=== PATIENT | male | born 1965 | race Caucasian/White ===

== ENCOUNTER 2020-02-13 08:41 | Inpatient (IN) | payer MEDICAID, OTHER ==
[~2020-02-13] VITALS: Ht 190.5 cm; Wt 97.5 kg
[2020-02-13] MEDS ORDERED: SODIUM CHLORIDE 0.9% 1,000 ML IV ONE (09:08)
[2020-02-13] MEDS ORDERED: cefTRIAXone 1GM/50ML D5W 50 ML IV ONE (09:15)
[2020-02-13 10:26] LABS: Basophils # (auto) 0.1 10 ^3/uL (0-0.2); Basophils % (auto) 0.8 % (0.0-2.0); Eosinophils # (auto) 0.1 10 ^3/uL (0-0.8); Hematocrit 47.1 % (41.0-53.0); Hemoglobin 16.6 g/dL (13.5-17.5); Lymphocytes # (auto) 2.4 10 ^3/uL (0.4-5.4); Lymphocytes % (auto) 21.1 % (10.0-50.0); Mean Corpuscular Hemoglobin 33.4 pg (28.0-32.0); Mean Corpuscular Hgb Conc. 35.3 g/dL (32.0-36.0); Mean Corpuscular Volume 94.6 fL (80.0-100.0); Monocytes # (auto) 0.8 10 ^3/uL (0-1.3); Monocytes % (auto) 7.3 % (0.0-12.0); Neutrophils % (auto) 69.8 % (37.0-80.0); Nucleated Red Blood Cells % 0.1 %; Platelet Count (auto) 192 10^3/uL (140-450); Red Blood Cells 4.98 10^6/uL (4.5-5.90); White Blood Cell 11.4 10^3/uL (4.4-10.8)
[2020-02-13 10:47] LABS: Alanine Aminotransferase 52 U/L (16-61); Albumin 3.7 g/dL (3.4-5.0); Anion Gap 9 (5-15); Blood Urea Nitrogen 12 mg/dL (7-18); Calcium 8.8 mg/dL (8.5-10.1); Carbon Dioxide 24 mmol/L (21-32); Chloride 108 mmol/L (98-107); Glucose 145 mg/dL (74-106); Magnesium 2.2 mg/dL (1.6-2.6); Potassium 3.7 mmol/L (3.5-5.1); Sodium 141 mmol/L (136-145)
[2020-02-13 10:52] LABS: Alkaline Phosphatase 120 U/L (45-117); Aspartate Aminotransferase 27 U/L (15-37); BUN/Creatinine Ratio 11.7; Bilirubin, Total 1.8 mg/dL (0.2-1.0); GFR African American 97 mL/min; GFR Non-African American 80 mL/min; Total Protein 7.8 g/dL (6.4-8.2)
[2020-02-13 11:48] LABS: Urine Bacteria NONE SEEN /hpf (None Seen); Urine Blood 1+ /uL (Negative); Urine Specific Gravity 1.017 (1.001-1.035); Urine Sperm PRESENT /hpf (None Seen); Urine WBC 1 /hpf (0 - 3)
[2020-02-13 12:08] LABS: Alcohol, Urine < 3.0 mg/dL (0-5); Amphetamine Screen, Urine POSITIVE (NEGATIVE); Barbiturate Scree,Urine NEGATIVE (NEGATIVE); Benzodiazephine Screen, Urine NEGATIVE (NEGATIVE); Cannabinoid Screen, Urine NEGATIVE (NEGATIVE); Cocaine Screen, Urine NEGATIVE (NEGATIVE); Opiate Scree,Urine NEGATIVE (NEGATIVE); Phencyclidine Screen, Urine NEGATIVE (NEGATIVE)
[2020-02-13] MEDS ORDERED: hydrALAZINE HCL 10 MG TAB PO ONE (16:45)
[2020-02-13] MEDS ORDERED: NITROGLYCERIN 0.4 MG SL TAB SL PRN (18:15)
[2020-02-13] MEDS ORDERED: DEXTROSE (50%) 50ML SYRG IV PRN (18:15)
[2020-02-13] MEDS ORDERED: traMADol HCL 50 MG TAB PO PRN (18:15)
[2020-02-13] MEDS ORDERED: LACTULOSE 20Gm/30ML SOLN PO PRN (18:15)
[2020-02-13] MEDS ORDERED: PROMETHAZINE HCL 25 MG/ML 1ML IV PRN (18:15)
[2020-02-13] MEDS ORDERED: SODIUM CHLORIDE 0.9% 1,000 ML IV SCH (18:15)
[2020-02-13] MEDS ORDERED: ACETAMINOPHEN 500 MG TAB PO PRN (18:15)
[2020-02-13] MEDS ORDERED: MORPHINE SULF INJ 2 MG/ML SYRINGE 1ML IV PRN (18:15)
[2020-02-13] MEDS ORDERED: CLINDAMYCIN 900MG IV 50 ML IV ONE (18:30)
[2020-02-13] MEDS ORDERED: ENALAPRILAT 1.25 MG/ML-1ML VIAL IV ONE (18:30)
[2020-02-13] MEDS ORDERED: ENALAPRILAT 1.25 MG/ML-1ML VIAL IV PRN (18:30)
[2020-02-13] MEDS ORDERED: amLODIPine BESYLATE 5 MG TAB PO ONE (18:30)
[2020-02-13 21:30] VITALS: BP 150/88
[2020-02-13] MEDS ORDERED: dilTIAZem 25 MG/5 ML VIAL IV ONE (22:00)
[2020-02-13] MEDS ORDERED: CLINDAMYCIN 600MG IV 50 ML IV SCH (22:00)
[2020-02-13] MEDS ORDERED: ACCU-CHEK COMFORT CURVE STRIP VI SCH (22:00)
[2020-02-14] MEDS ORDERED: cefTRIAXone 1GM/50ML D5W 50 ML IV SCH (09:00)
[2020-02-14] MEDS ORDERED: amLODIPine BESYLATE 5 MG TAB PO SCH (10:00)
[2020-02-14] MEDS ORDERED: ENALAPRIL MALEATE 10 MG TAB PO SCH (10:00)
== END 2020-02-13 22:08 | disposition left against medical advice (07) | DRG 383 ==
LOC: ER 08:41 → TELE 08:42
PROVIDERS: ADMIT Internal Medicine; ATTEND Internal Medicine
DX: L03.114 Cellulitis of left upper limb (principal); F15.10 Other stimulant abuse, uncomplicated; I25.10 Atherosclerotic heart disease of native coronary artery without angina pectoris; Z53.29 Procedure and treatment not carried out because of patient's decision for other reasons; I10 Essential (primary) hypertension; Z87.820 Personal history of traumatic brain injury; Z87.891 Personal history of nicotine dependence; Z95.5 Presence of coronary angioplasty implant and graft; Z86.19 Personal history of other infectious and parasitic diseases; I16.0 Hypertensive urgency
CPT/HCPCS: 36415; 71046; 80053; 80307; 81001; 82550; 83735; 84443; 84484; 85025; 85652; 87040; 93971; G0378; J0696; J3490